=== PATIENT | male | born 1985 | race Caucasian/White ===

== ENCOUNTER 2018-06-22 11:41 | Emergency (ER) | payer OTHER ==
[2018-06-22] MEDS ORDERED: BUFFERED LIDOCAINE 10 ML SYRINGE SUBQ STA (13:23)
--- NOTE | 2018-06-22 13:49 | ED Physician Documentation ---
PD HPI HEAD INJURY - Stated complaint Stated Complaint: HEAD INJ - Chief complaint Chief Complaint: Laceration - History obtained from History obtained from: Patient - History of Present Illness Mechanism of head injury: Blow, Laceration Where head injury occurred: Work Timing - onset: Today Severity Comments: Moderate pain Location of injury: Right, Front Quality of pain: Throbbing Associated symptoms: No: LOC, AMS, Amnesia, Nausea / vomiting, Neck pain, Paresthesias, Seizures, Ear drainage, Nasal drainage Contributing factors: No: Anticoagulated Recently seen: Not recently seen (33-year-old male presents the emergency department for a laceration to the top of his scalp after striking it on a jet at work. The bleeding currently is controlled) Review of Systems Constitutional: denies: Fever, Chills Eyes: denies: Discharge Ears: denies: Drainage/discharge GI: denies: Vomiting Skin: reports: Laceration (s) Musculoskeletal: denies: Neck pain, Back pain Neurologic: reports: Head injury PD PAST MEDICAL HISTORY - Past Medical History Past Medical History: No - Past Surgical History Past Surgical History: Yes Ortho: Other - Present Medications Home Medications: Ambulatory Orders Medication Instructions Recorded Confirmed No Known Home Medications 06/22/18 06/22/18 - Allergies Allergies/Adverse Reactions: Allergies Allergy/AdvReac Type Severity Reaction Status Date / Time No Known Drug Allergies Allergy Verified 06/22/18 11:45 - Social History Does the pt smoke?: No Smoking Status: Never smoker Does the pt drink ETOH?: Yes ETOH Use: Beer Does the pt have substance abuse?: No - Immunizations Immunizations are current?: Yes - POLST Patient has POLST: No PD ED PE NORMAL - General General: Alert and oriented X 3, No acute distress - HEENT HEENT: PERRL, EOMI, Other (The patient has a 1.5 cm irregular laceration on the scalp, no active bleeding, no foreign body, no crepitus) - Neck Neck: No bony TTP - Derm Derm: Other (1.5 cm scalp laceration) - Neuro Neuro: Alert and oriented X 3, 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, No motor deficit, Normal speech - Psych Psych: Normal affect PD ED PE EXPANDED - HEENT HEENT Visual: 1 - laceration Results - Vitals Vitals: Vital Signs - 24 hr 06/22/18 11:44 Temperature 36.3 C L Heart Rate 83 Respiratory 16 Rate Blood Pressure 142/99 H O2 Saturation 99 Oxygen O2 Source Room air Procedures - Laceration (location) Scalp right Length in cm: 1.5 Wound type: Irregular Neurovascular status: Vascular intact Anesthesia: Lidocaine 1% Wound Preparation: Irrigated copiously NS Skin layer closure: Dailey Other: Patient tolerated well, No complications, Tetanus UTD Complexity: Simple PD MEDICAL DECISION MAKING - ED course ED course: The patient has had a mild head injury, there is no evidence of intracranial hemorrhage or skull fracture on examination her history so no further imaging is warranted at this time. The patient's laceration was closed using milka. The patient appears appropriate for discharge and ongoing outpatient management. I discussed warning signs and recommended returning to the emergency department immediately for worsening or any concerns. - Sepsis Event Vital Signs: Vital Signs - 24 hr 06/22/18 11:44 Temperature 36.3 C L Heart Rate 83 Respiratory 16 Rate Blood Pressure 142/99 H O2 Saturation 99 Oxygen O2 Source Room air Departure - Departure Disposition: 01 Home, Self Care Clinical Impression: Closed head injury Qualifiers: Encounter type: initial encounter Qualified Code(s): S09.90XA - Unspecified injury of head, initial encounter Scalp laceration Qualifiers: Encounter type: initial encounter Qualified Code(s): S01.01XA - Laceration without foreign body of scalp, initial encounter Instructions: ED Head Injury Closed, ED Laceration All Comments: Please have your sutures removed in 7 days. Please return to the emergency department immediately for worsening symptoms or any concerns
[2018-06-22 14:01] VITALS: BP 134/80
== END 2018-06-22 13:58 | disposition home or self-care (01) ==
LOC: ED 11:41
DX: S09.90XA Unspecified injury of head, initial encounter (principal); S01.01XA Laceration without foreign body of scalp, initial encounter; W22.09XA Striking against other stationary object, initial encounter; Y92.89 Other specified places as the place of occurrence of the external cause; Y99.8 Other external cause status
CPT/HCPCS: 12001; 99282; 99283

== ENCOUNTER 2019-10-22 15:35 | Outpatient (CLI) | payer OTHER | END 2019-10-22 15:36 | disposition critical access hospital (66) | LOC: EMS 15:35 | PROVIDERS: ATTEND Surgery | DX: R20.0 Anesthesia of skin (principal); R06.4 Hyperventilation; R25.2 Cramp and spasm | CPT/HCPCS: A0425; A0429 ==

== ENCOUNTER 2019-10-22 16:01 | Emergency (ER) | payer OTHER ==
--- NOTE | 2019-10-22 16:13 | ED Physician Documentation ---
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 He started to get very short of breath and dizzy but did not pass out. He did not have any chest pain. The symptoms started about 45 minutes prior to presentation and an ambulance was called to transport him here. They started an IV but they do not think they gave him any medication. He is never had anything happen like this before. He did feel a little bit nauseous but no vomiting. Denies any sore throat or urinary symptoms. He is with a and kids that live in [place]. He is been away from them for 9 months. Review of Systems Constitutional: denies: Fever Ears: denies: Ear pain Nose: denies: Rhinorrhea / runny nose Throat: denies: Sore throat Cardiac: reports: Palpitations. denies: Chest pain / pressure Respiratory: reports: Dyspnea. denies: Cough GI: reports: Nausea. denies: Vomiting : denies: Dysuria Neurologic: reports: Other (Spasms of the hands). denies: Generalized weakness, Focal weakness Psychiatric: denies: Anxiety PD PAST MEDICAL HISTORY - Past Surgical History Past Surgical History: Yes Ortho: Other - Present Medications Home Medications: Ambulatory Orders Medication Instructions Recorded Confirmed No Known Home Medications 06/22/18 06/22/18 - Allergies Allergies/Adverse Reactions: Allergies Allergy/AdvReac Type Severity Reaction Status Date / Time No Known Drug Allergies Allergy Verified 10/22/19 16:05 - Social History Does the pt smoke?: No Smoking Status: Never smoker Does the pt drink ETOH?: Yes Does the pt have substance abuse?: No - Immunizations Immunizations are current?: Yes - POLST Patient has POLST: No PD ED PE NORMAL - Vitals Vital signs reviewed: Yes - General General: Alert and oriented X 3, Well developed/nourished, Other (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 he could barely open his hand to shake mine.) - HEENT HEENT: Atraumatic, PERRL, EOMI, Moist mucous membranes, Pharynx benign - Neck Neck: Supple, no meningeal sign, No adenopathy, Thyroid normal - Cardiac Cardiac: RRR, No murmur, Strong equal pulses - Respiratory Respiratory: No respiratory distress, Clear bilaterally - Abdomen Abdomen: Normal bowel sounds, Soft, Non tender - Neuro Neuro: Alert and oriented X 3, No motor deficit, No sensory deficit, Normal speech Results - Vitals Vitals: Vital Signs - 24 hr 10/22/19 16:05 Temperature 36.7 C Heart Rate 111 H Respiratory 20 Rate Blood Pressure 148/96 H O2 Saturation 100 Oxygen O2 Source Room air - EKG (time done) 1647 Rate: Rate (enter#) (100) Rhythm: NSR Intervals: Normal AK. No: Wide QRS Ischemia: Non specific changes Compare to prior EKG: Old EKG unavailable - Labs Labs: Laboratory Tests 10/22/19 10/22/19 10/22/19 14:42 14:42 16:42 WBC 13.8 H RBC 4.65 L Hgb 14.4 Hct 40.6 L MCV 87.3 MCH 31.0 MCHC 35.5 RDW 12.2 Plt Count 293 MPV 9.0 Neut # (Auto) 11.6 H Lymph # (Auto) 1.3 L [place] # (Auto) 0.8 Eos # (Auto) 0.0 Baso # (Auto) 0.1 Absolute Nucleated RBC 0.00 Nucleated RBC % 0.0 Sodium 132 L Potassium 3.3 L Chloride 95 L Carbon Dioxide 21 Anion Gap 16.0 H BUN 12 Creatinine 1.0 Estimated GFR (MDRD) 86 L Glucose 134 H Calcium 9.4 Total Bilirubin 1.3 H AST 37 ALT 26 Alkaline Phosphatase 52 Total Protein 7.5 Albumin 4.4 Globulin 3.1 Albumin/Globulin Ratio 1.4 Lipase 34 TSH 1.57 - Rads (name of study) cxr Radiology: See rad report (neg acute) PD MEDICAL DECISION MAKING - ED course Complexity details: reviewed results, re-evaluated patient, d/w patient ED course: Patient presented with carpal spasm from parent panic attack. TSH is normal. EKG had nonspecific changes but no acute ischemia. Chest x-ray was clear without pneumothorax. His sodium potassium and bicarb were all a little low. White blood cell count was a little elevated which could have just been a stress reaction. Hemoglobin is normal. Patient received an Ativan 1 mg IV the and was feeling better. To be discharged with his command and [place]: The patient is feeling improved. He declined any further medications tonight to help with his symptoms. [place] Departure - Departure Disposition: 01 Home, Self Care Clinical Impression: Panic attack Condition: Good Instructions: ED Panic Attack Follow-Up: SUSANNE Wilson [Provider Group] [place].
[2019-10-22] MEDS ORDERED: LORazepam 2 MG/ML VIAL IVP STA (16:32)
[2019-10-22 16:57] LABS: BASOPHILS # (AUTO) 0.1 10^3/uL (0.0-0.1); BASOPHILS % (AUTO) 0.5 %; EOSINOPHILS % (AUTO) 0.2 %; HGB - HEMOGLOBIN 14.4 g/dL (14.0-18.0); LYMPHOCYTES # (AUTO) 1.3 10^3/uL (1.5-3.5); MEAN CORPUSCULAR HGB CONC 35.5 g/dL (32.0-36.0); MEAN CORPUSCULAR VOLUME 87.3 fL (80.0-94.0); MONOCYTES # (AUTO) 0.8 10^3/uL (0.0-1.0); NEUTROPHILS # (AUTO) 11.6 10^3/uL (1.5-6.6); NEUTROPHILS % (AUTO) 83.6 %; PLT - PLATELET COUNT 293 10^3/uL (130-450); RED BLOOD COUNT 4.65 10^6/uL (4.70-6.10); RED CELL DISTRIBUTION WIDTH 12.2 % (12.0-15.0); WHITE BLOOD COUNT 13.8 x10^3/uL (4.8-10.8)
[2019-10-22 16:59] LABS: ALBUMIN 4.4 g/dL (3.2-5.5); ALBUMIN/GLOBULIN RATIO 1.4 (1.0-2.2); BILIRUBIN,TOTAL 1.3 mg/dL (0.2-1.0); CALCIUM 9.4 mg/dL (8.5-10.3); TOTAL PROTEIN 7.5 g/dL (6.7-8.2)
--- NOTE | 2019-10-22 17:46 | XRAY Report ---
Reason: cough Procedure Date: 10/22/2019 Accession Number: [id number] / [id number] Procedure: XR - Chest 2 View X-Ray CPT Code: 09745 Final Report FULL RESULT: EXAM: CHEST RADIOGRAPHY EXAM DATE: 10/22/2019 05:36 PM. CLINICAL HISTORY: Cough. COMPARISON: None. TECHNIQUE: 2 views. FINDINGS: Lungs/Pleura: No focal opacities evident. No pleural effusion. No pneumothorax. Increased volumes. Mediastinum: Heart and mediastinal contours are unremarkable. Other: None. IMPRESSION: Some hyperinflation, otherwise no acute disease. [facility]
[2019-10-22 19:01] VITALS: BP 137/92
== END 2019-10-22 19:40 | disposition home or self-care (01) ==
LOC: EDUNIT# → ED 16:01
DX: F41.0 Panic disorder [episodic paroxysmal anxiety] (principal); R00.0 Tachycardia, unspecified; R06.82 Tachypnea, not elsewhere classified; R29.0 Tetany; R25.2 Cramp and spasm; R42 Dizziness and giddiness
CPT/HCPCS: 36415; 71046; 83690; 93005; 99284; J2060; 80053; 84443; 85025